=== PATIENT | male | born 1990 | race African-American/Black ===

== ENCOUNTER 2021-01-28 12:16 | Emergency (ER) | payer OTHER ==
[~2021-01-28] VITALS: Ht 177.8 cm; Wt 93.0 kg
[2021-01-28 12:39] VITALS: BP 131/68
--- NOTE | 2021-01-28 12:42 | NUR ---
The patient bibs for c/o "cough everytime i take a deep breath", per patient he is -covid today. Denies SOB. In room air and respiratin regular and unlabored. Denies pain. Will continue to monitor the patient.
[2021-01-28] MEDS ORDERED: METH4TAB3 PO (13:07)
[2021-01-28] MEDS ORDERED: ALBU8.5H8 INH (13:07)
--- NOTE | 2021-01-28 13:24 | NUR ---
Patient discharged to home in stable condition. Written and verbal after care instructions given. Patient verbalizes understanding of instruction. The patient left ER in stable condition.
== END 2021-01-28 13:25 | disposition home or self-care (01) ==
LOC: ER 12:24
DX: R05 Cough (principal); Z79.899 Other long term (current) drug therapy
CPT/HCPCS: 71045-TC